=== PATIENT | male | born 1980 | race Caucasian/White ===

== ENCOUNTER 2021-02-08 11:32 | Inpatient (IN) | payer MEDICAID ==
[2021-02-08] MEDS ORDERED: Bisacodyl 10 MG Supp RECTAL ONE (12:02)
--- NOTE | 2021-02-08 12:08 | EDM.PDOC ---
ED HPI GENERAL MEDICAL PROBLEM - General Chief Complaint: Abdominal Pain Stated Complaint: UPSET STOMACH Time Seen by Provider: 02/08/21 11:50 Source of Information: Reports: Patient, RN. Denies: Old Records History Limitations: Reports: Other (no old records) - History of Present Illness INITIAL COMMENTS - FREE TEXT/NARRATIVE: 40 yo male presents for intermittent abdominal pain for the past approx 5 days. He has had occasional nausea and vomiting. No fever. No hx of any abdominal surgeries. His last BM was 2 d ago and was small and hard. Pain is diffuse when he gets it. Denies current pain or nausea. Onset: Gradual Onset Date: 02/03/21 Duration: Intermittent Location: Reports: Abdomen Quality: Reports: Pressure Severity: Moderate Improves with: Reports: Other (sitting up?) Worsens with: Reports: Other (lying flat?). Denies: Eating Context: Reports: Other (See HPI) Associated Symptoms: Reports: Nausea/Vomiting. Denies: Fever/Chills Treatments [employer]: Reports: Other (see below) (none) Abdominal Pain Score (Numeric/FACES): 6 - Related Data Allergies Allergy/AdvReac Type Severity Reaction Status Date / Time Penicillins Allergy Rash Verified 02/08/21 11:46 Home Meds: Home Meds NK [No Known Home Meds] 02/08/21 [History] Past Medical History HEENT History: Reports: None Cardiovascular History: Reports: None Respiratory History: Reports: None Gastrointestinal History: Reports: None Genitourinary History: Reports: None Musculoskeletal History: Reports: Other (See Below) Other Musculoskeletal History: right shoulder pain states it was dislocated 2 years ago Neurological History: Reports: None Psychiatric History: Reports: None Endocrine/Metabolic History: Reports: None Hematologic History: Reports: None Immunologic History: Reports: None Oncologic (Cancer) History: Reports: None Dermatologic History: Reports: None - Infectious Disease History Infectious Disease History: Reports: Chicken Pox - Past Surgical History Cardiovascular Surgical History: Reports: None Social & Family History - Tobacco Use Tobacco Use Status *Q: Current Every Day Tobacco User Years of Tobacco use: 25 Packs/Tins Daily: 1 - Caffeine Use Caffeine Use: Reports: Soda - Recreational Drug Use Recreational Drug Use: No ED ROS GENERAL - Review of Systems Review Of Systems: See Below Constitutional: Reports: No Symptoms HEENT: Reports: No Symptoms Respiratory: Reports: No Symptoms Cardiovascular: Reports: No Symptoms GI/Abdominal: Reports: Abdominal Pain, Constipation, Hematemesis (possibly a small amt), Nausea, Vomiting. Denies: Black Stool, Bloody Stool, Diarrhea, Hematochezia : Reports: No Symptoms Musculoskeletal: Reports: No Symptoms Skin: Reports: No Symptoms ED EXAM, GI/ABD - Physical Exam Exam: See Below Exam Limited By: No Limitations General Appearance: Alert, WD/WN, No Apparent Distress Eyes: Bilateral: Normal Appearance Ears: Normal External Exam, Normal Canal, Hearing Grossly Normal. No: Hearing Loss Nose: Normal Inspection, No Blood Throat/Mouth: Normal Inspection, Normal Lips, Normal Oropharynx, Normal Voice, No Airway Compromise Head: Atraumatic, Normocephalic Neck: Normal Inspection Respiratory/Chest: No Respiratory Distress, Lungs Clear, Normal Breath Sounds, No Accessory Muscle Use Cardiovascular: Regular Rate, Rhythm, No Edema GI/Abdominal Exam: Soft, Non-Tender, Abnormal Bowel Sounds (decreased), Other (some distention likely due to obesity.). No: Guarding, Rigid, Rebound, Tender Back Exam: Normal Inspection. No: CVA Tenderness (R), CVA Tenderness (L) Extremities: Normal Inspection, Normal Range of Motion, Non-Tender, No Pedal Edema Neurological: Alert, Oriented, CN II-XII Intact, Normal Cognition, No Motor/Sensory Deficits Psychiatric: Normal Affect, Normal Mood Skin Exam: Warm, Dry, Intact, Normal Color, No Rash Course - Vital Signs Text/Narrative:: Dr. Reilly Rodriguez called @ 1530h Dr. Mayo called @ 1532h Last Recorded V/S: Last Vital Signs Temp 35.6 C L 02/08/21 11:58 Pulse 105 H 02/08/21 14:16 Resp 22 H 02/08/21 14:16 BP 149/90 H 02/08/21 14:16 Pulse Ox 97 02/08/21 14:16 - Orders/Labs/Meds Orders: Active Orders 24 hr Category Date Time Status Enema [RC] ASDIRECTED Care 02/08/21 13:08 Active UA W/MICROSCOPIC [URIN] Stat Lab 02/08/21 14:15 Ordered Labs: Laboratory Tests 02/08/21 02/08/21 02/08/21 Range/Units 14:27 15:05 15:05 WBC 23.7 H (4.5-11.0) K/uL RBC 6.09 H (4.30-5.90) M/uL Hgb 17.6 H (12.0-15.0) g/dL Hct 52.4 (40.0-54.0) % MCV 86 (80-98) fL MCH 29 (27-31) pg MCHC 34 (32-36) % Plt Count 264 (150-400) K/uL Sodium 136 L (140-148) mmol/L Potassium 4.0 (3.6-5.2) mmol/L Chloride 99 L (100-108) mmol/L Carbon Dioxide 24 (21-32) mmol/L Anion Gap 17.0 H (5.0-14.0) mmol/L BUN 14 (7-18) mg/dL Creatinine 1.1 (0.8-1.3) mg/dL Est Cr Clr Drug Dosing 100.88 mL/min Estimated GFR (MDRD) > 60 (>60) Glucose 163 H (74-106) mg/dL Calcium 9.5 (8.5-10.1) mg/dL Total Bilirubin 0.8 (0.2-1.0) mg/dL AST 18 (15-37) U/L ALT 31 (12-78) U/L Alkaline Phosphatase 106 (46-116) U/L C-Reactive Protein 15.79 H (0.0-0.3) mg/dL Total Protein 8.5 H (6.4-8.2) g/dL Albumin 3.8 (3.4-5.0) g/dL Globulin 4.7 H (2.3-3.5) g/dL Albumin/Globulin Ratio 0.8 L (1.2-2.2) Meds: Medications Discontinued Medications Generic Name Dose Route Start Last Admin Trade Name Freq PRN Reason Stop Dose Admin Bisacodyl 10 mg 02/08/21 12:02 02/08/21 12:06 Bisacodyl 10 Mg Supp RECTAL 02/08/21 12:03 10 mg ONETIME ONE Administration Hydromorphone HCl 1 mg 02/08/21 14:14 02/08/21 14:20 Hydromorphone 1 Mg/Ml Syringe IM 02/08/21 14:15 1 mg ONETIME ONE Administration Lisinopril 10 mg 02/08/21 14:56 Lisinopril 10 Mg Tab PO 02/08/21 14:57 ONETIME ONE Simethicone 160 mg 02/08/21 14:48 02/08/21 14:53 Simethicone 80 Mg Tab.Chew PO 02/08/21 14:49 160 mg ONETIME ONE Administration - Radiology Interpretation Free Text/Narrative:: GB ultrasound-acute cholecystitis - Re-Assessments/Exams Free Text/Narrative Re-Assessment/Exam: 02/08/21 13:08 No results with Dulcolax, will try an enema. Free Text/Narrative Re-Assessment/Exam: 02/08/21 14:17 Pain came back after over an hour in the ER, describes now as RUQ. Does have tenderness on exam now. No results with enema. Departure - Departure Time of Disposition: 15:40 Disposition: Admitted As Inpatient 66 Condition: Fair Clinical Impression: Acute cholecystitis, Elevated blood sugar - Discharge Information Referrals: PCP,None [Primary Care Provider] - Forms: ED Department Discharge Sepsis Event Note (ED) - Focused Exam Vital Signs: Vital Signs Temp Pulse Resp BP Pulse Ox 02/08/21 14:16 105 H 22 H 149/90 H 97 02/08/21 11:58 35.6 C L 83 16 148/93 H 96 - My Orders Last 24 Hours: My Active Orders 02/08/21 13:08 Enema [RC] ASDIRECTED 02/08/21 14:15 UA W/MICROSCOPIC [URIN] Stat - Assessment/Plan Last 24 Hours: My Active Orders 02/08/21 13:08 Enema [RC] ASDIRECTED 02/08/21 14:15 UA W/MICROSCOPIC [URIN] Stat
[2021-02-08] MEDS ORDERED: HYDROmorphone 1 MG/ML Syringe IM ONE (14:14)
[2021-02-08] MEDS ORDERED: Simethicone 80 MG Tab.Chew PO ONE (14:48)
[2021-02-08] MEDS ORDERED: Lisinopril 10 MG Tab PO ONE (14:56)
--- NOTE | 2021-02-08 15:15 | US ---
Abdomen Ltd CLINICAL HISTORY: Right upper quadrant pain COMPARISON: None. TECHNIQUE: Real-time images were obtained through the right upper quadrant. FINDINGS: The liver is free of mass or biliary dilatation. There is increased hepatic echogenicity suggesting fatty infiltration. The gallbladder is sludge-filled. Gallbladder wall measures 4 mm. There is some minimal pericholecystic fluid. There are scattered stones.. The common bile duct measures 5 mm. The pancreas is obscured. The right kidney has a normal appearance. The IVC is normal. IMPRESSION: Sludge-filled gallbladder with scattered small gallstones Gallbladder wall thickening with pericholecystic fluid consistent with acute cholecystitis
[2021-02-08] MEDS ORDERED: Lactated Ringers 1,000 ML IV SCH (15:30)
--- NOTE | 2021-02-08 16:22 | PCM.HP.2 ---
H&P History of Present Illness - General Date of Service: 02/08/21 Admit Problem/Dx: Admission Diagnosis/Problem Admission Diagnosis/Problem Acute cholecystitis Source of Information: Patient, Family, Provider History Limitations: Reports: No Limitations - History of Present Illness Initial Comments - Free Text/Narative: CC: I don't want this thing to blow up inside me HPI: Samir presents to the emergency room today with several days of progressive right upper quadrant abdominal pain as well as nausea and intermittent vomiting. He thinks that symptoms started on Saturday, about 5 days ago after he ate a pastry. After that time he had initially mild but then moderate and eventually moderately severe pain. Pain is mostly in the right upper quadrant and does not radiate. It seems to come and go in waves without any obvious trigger. He did try Pepto-Bismol as well as ibuprofen with minimal if any improvement. The pain has steadily been getting worse to the point that he is not able to sleep. Intake has been poor and he has not had any appetite. Food does not taste good to him but he has not lost his taste or smell. He has had subjective fevers and chills. He did has not noticed a change in bowel or bladder habits. He has had what he calls shortness of breath because it is hard to take a deep breath when his pain is intense. He does report similar episodes in the past dating back as many as 20 years though none have ever been this intense. His most recent episode was about 3 months ago. He has no history of surgery. There is no family history of difficulty with anesthesia. He has a good functional status and can walk without limitation. Work-up in the emergency room revealed leukocytosis and an elevated CRP. Right upper quadrant ultrasound suggested acute cholecystitis with a thick gallbladder wall, sludge and gallstones. Common bile duct was normal. He will be admitted to initiate IV antibiotics and the plan is for surgical intervention tomorrow. Abdominal Pain Score (Numeric/FACES): 8 - Related Data Allergies/Adverse Reactions: Allergies Allergy/AdvReac Type Severity Reaction Status Date / Time Penicillins Allergy Rash Verified 02/08/21 11:46 Home Medications: Home Meds NK [No Known Home Meds] 02/08/21 [History] Past Medical History HEENT History: Reports: None Cardiovascular History: Reports: None Respiratory History: Reports: None Gastrointestinal History: Reports: None Genitourinary History: Reports: None Musculoskeletal History: Reports: Other (See Below) Other Musculoskeletal History: right shoulder pain states it was dislocated 2 years ago Neurological History: Reports: None Psychiatric History: Reports: None Endocrine/Metabolic History: Reports: None Hematologic History: Reports: None Immunologic History: Reports: None Oncologic (Cancer) History: Reports: None Dermatologic History: Reports: None - Infectious Disease History Infectious Disease History: Reports: Chicken Pox - Past Surgical History Cardiovascular Surgical History: Reports: None Social & Family History - Family History GI: Reports: Other (See Below) (mom and dad both had cholecystitis) - Tobacco Use Tobacco Use Status *Q: Current Every Day Tobacco User Years of Tobacco use: 25 Packs/Tins Daily: 1 - Caffeine Use Caffeine Use: Reports: Soda - Alcohol Use Alcohol Use History: No - Recreational Drug Use Recreational Drug Use: No H&P Review of Systems - Review of Systems: Review Of Systems: See Below Free Text/Narrative: A complete 12 point review of systems was obtained. Pertinent positives and negatives are noted in the history of present illness. All other systems were reviewed and were negative except as noted. Exam - Exam Exam: See Below - Vital Signs Vital Signs: Last Vital Signs Temp 35.6 C L 02/08/21 11:58 Pulse 105 H 02/08/21 14:16 Resp 22 H 02/08/21 14:16 BP 149/90 H 02/08/21 14:16 Pulse Ox 97 02/08/21 14:16 Weight: 104.326 kg - Exam Quality Assessment: No: Supplemental Oxygen General: Alert, Oriented, Cooperative. No: Mild Distress HEENT: Conjunctiva Clear, Mucosa Moist & [place]. No: Scleral Icterus Neck: Supple, Trachea Midline. No: Lymphadenopathy Lungs: Clear to Auscultation, Normal Respiratory Effort Cardiovascular: Regular Rate, Regular Rhythm. No: Systolic Murmur GI/Abdominal Exam: Normal Bowel Sounds, Soft, No Distention, Tender (moderate RUQ) Extremities: No Pedal Edema. No: Increased Warmth Peripheral Pulses: 2+: Dorsalis Pedis (L), Dorsalis Pedis (R) Skin: Warm, Dry Neuro Extensive - Mental Status: Alert, Oriented x3, Nl Response to Commands Neuro Extensive - Motor, Sensory, Reflexes: No: Dysarthria, Abnormal Motor, Tremor Psychiatric: Alert, Normal Affect - Patient Data Lab Results Last 24 hrs: Laboratory Results - last 24 hr 02/08/21 02/08/21 02/08/21 Range/Units 14:27 15:05 15:05 WBC 23.7 H (4.5-11.0) K/uL RBC 6.09 H (4.30-5.90) M/uL Hgb 17.6 H (12.0-15.0) g/dL Hct 52.4 (40.0-54.0) % MCV 86 (80-98) fL MCH 29 (27-31) pg MCHC 34 (32-36) % Plt Count 264 (150-400) K/uL Sodium 136 L (140-148) mmol/L Potassium 4.0 (3.6-5.2) mmol/L Chloride 99 L (100-108) mmol/L Carbon Dioxide 24 (21-32) mmol/L Anion Gap 17.0 H (5.0-14.0) mmol/L BUN 14 (7-18) mg/dL Creatinine 1.1 (0.8-1.3) mg/dL Est Cr Clr Drug Dosing 100.88 mL/min Estimated GFR (MDRD) > 60 (>60) Glucose 163 H (74-106) mg/dL Calcium 9.5 (8.5-10.1) mg/dL Total Bilirubin 0.8 (0.2-1.0) mg/dL AST 18 (15-37) U/L ALT 31 (12-78) U/L Alkaline Phosphatase 106 (46-116) U/L C-Reactive Protein 15.79 H (0.0-0.3) mg/dL Total Protein 8.5 H (6.4-8.2) g/dL Albumin 3.8 (3.4-5.0) g/dL Globulin 4.7 H (2.3-3.5) g/dL Albumin/Globulin Ratio 0.8 L (1.2-2.2) Result Diagrams: 02/08/21 15:05 02/08/21 14:27 Imaging Impressions Last 24 hrs: RUQ US-images personally reviewed-there is diffuse GB wall thickening at 4 mm. There is sludge in the GB and some stones. There is pericholecystic fluid present. Sepsis Event Note - Focused Exam Vital Signs: Vital Signs Temp Pulse Resp BP Pulse Ox 02/08/21 14:16 105 H 22 H 149/90 H 97 02/08/21 11:58 35.6 C L 83 16 148/93 H 96 *Q Meaningful Use (ADM) - VTE *Q VTE Pharmacological Contraindications *Q: Patient Scheduled Surgery - VTE Risk Assess *Q Each Risk Factor Represents 1 Point: Obesity ( BMI > 25 kg/m2) Total Score 1 Point Risk Factors: 1 Each Risk Factor Represents 2 Points: None Total Score 2 Point Risk Factors: 0 Each Risk Factor Represents 3 Points: None Total Score 3 Point Risk Factors: 0 Each Risk Factor Represents 5 Points: None Total Score 5 Point Risk Factors: 0 Venous Thromboembolism Risk Factor Score *Q: 1 - Problem List (1) Acute cholecystitis SNOMED Code(s): 92822171 ICD Code: K81.0 - ACUTE CHOLECYSTITIS Status: Acute Current Visit: Yes (2) Elevated blood sugar SNOMED Code(s): 69040708 ICD Code: R73.9 - HYPERGLYCEMIA, UNSPECIFIED Status: Acute Current Visit: Yes (3) Tobacco dependence SNOMED Code(s): 84904349 ICD Code: F17.200 - NICOTINE DEPENDENCE, UNSPECIFIED, UNCOMPLICATED Status: Chronic Current Visit: Yes Problem List Initiated/Reviewed/Updated: Yes Orders Last 24hrs: Active Orders 24 hr Category Date Time Status Patient Status Manage Transfer [TRANSFER] Routine ADT 02/08/21 16:13 Ordered Enema [RC] ASDIRECTED Care 02/08/21 13:08 Active UA W/MICROSCOPIC [URIN] Stat Lab 02/08/21 14:15 Ordered Lactated Ringers [Ringers, Lactated] 1,000 ml Med 02/08/21 15:30 Active IV ASDIRECTED Sodium Chloride 0.9% [Normal Saline] 1,000 ml Med 02/08/21 16:15 Active IV ASDIRECTED cefTAZidime Pentahydrate [Fortaz] 1 gm Med 02/08/21 16:30 Active Sodium Chloride 0.9% [Normal Saline] 50 ml IV Q8HR Resuscitation Status Routine Resus Stat 02/08/21 16:14 Ordered Medication Orders Lactated Ringer's (Ringers, Lactated) 1,000 mls @ 150 mls/hr IV ASDIRECTED EDGAR Ceftazidime 1 gm/ Sodium (Chloride) 50 mls @ 100 mls/hr IV Q8HR [facility] Sodium Chloride (Normal Saline) 1,000 mls @ 75 mls/hr IV ASDIRECTED [facility] Assessment/Plan Comment:: ASSESSMENT AND PLAN - Acute cholecystitis-ultrasound strongly suggestive of acute cholecystitis. He has leukocytosis and a clinical picture that fits well. Planning to initiate IV fluids and antibiotics. He is an appropriate surgical candidate and is probably in optimal achievable medical condition. He has no history of surgery. -Antibiotic coverage with ceftazidime -IV fluids -Symptomatic management of pain and nausea -Nothing by mouth after midnight -Surgical intervention for cholecystectomy tomorrow Hyperglycemia-patient reports he did drink Gatorade prior to coming to the hosp [facility]. No history of diabetes. -A1c in the morning Hypertension-blood pressure moderately elevated. No recent clinic visits. This could be related to pain/acute illness. -Monitor blood pressure at this time Tobacco dependence-encourage cessation. Maintenance issues - -DVT prophylaxis-mechanical -GI prophylaxis-not indicated -Nutrition-clear liquids today, nothing by mouth after midnight -James catheter-not indicated CODE STATUS -full code Admission justification -this patient will be admitted to observation status to initiate fluids and antibiotics with the plan for cholecystectomy tomorrow Disposition -I anticipate discharge home after the hospital stay Primary care physician -none Jung Mayo M.D. - Mortality Measure Prognosis:: Good
[2021-02-08] MEDS ORDERED: LORazepam 2 MG/ML SDV IVPUSH PRN (16:49)
[2021-02-08] MEDS ORDERED: Ondansetron 4 MG/2 ML SDV IV PRN (16:49)
[2021-02-08] MEDS ORDERED: Magnesium Hydroxide 400 MG/5 ML Susp 30 ML Cup PO PRN (16:49)
[2021-02-08] MEDS ORDERED: Ondansetron 4 MG Tab.DIS PO PRN (16:49)
[2021-02-08] MEDS ORDERED: oxyCODONE 5 MG Tab PO PRN (16:49)
[2021-02-08] MEDS ORDERED: HYDROmorphone 1 MG/ML Syringe IVPUSH PRN (16:49)
[2021-02-08] MEDS: Sodium Chloride 0.9% 1,000 ML IV SCH (17:40)
[2021-02-08] MEDS: Acetaminophen 325 MG Tab PO PRN (19:23)
[2021-02-08] MEDS: Lactobacillus Rhamnosus GG (Probiotic) Cap PO SCH (22:06)
[2021-02-09] MEDS: Acetaminophen 325 MG Tab PO PRN (02:29)
[2021-02-09 05:14] LABS: HEMOGLOBIN A1C 5.6 % (4.5-6.2)
[2021-02-09] MEDS ORDERED: Ketamine 500 MG/5 ML MDV IV SCH ×3 (07:15→11:30)
--- NOTE | 2021-02-09 07:16 | PCM.CONS ---
H&P History of Present Illness - General Date of Service: 02/09/21 Admit Problem/Dx: Admission Diagnosis/Problem Admission Diagnosis/Problem Acute cholecystitis Source of Information: Patient History Limitations: Reports: No Limitations - History of Present Illness Initial Comments - Free Text/Narative: Samir states he has had a 5 day history of RUQ Abdominal pain. Diagnosed with cholecystitis in the ED. Location: Reports: Abdomen (right upper quadrant and radiated a little to his right upper back. ) Quality: Reports: Pressure, Stabbing, Throbbing Severity: Mild (right now controlled with Oxycodone and Tylenol) Improves with: Reports: Medication Worsens with: Reports: Eating Associated Symptoms: Reports: No Other Symptoms Abdominal Pain Score (Numeric/FACES): 2 (after pain medication ) - Related Data Allergies/Adverse Reactions: Allergies Allergy/AdvReac Type Severity Reaction Status Date / Time Penicillins Allergy Rash Verified 02/08/21 11:46 Home Medications: Home Meds NK [No Known Home Meds] 02/08/21 [History] Past Medical History HEENT History: Reports: None Cardiovascular History: Reports: None Respiratory History: Reports: None Gastrointestinal History: Reports: Cholelithiasis Genitourinary History: Reports: None Musculoskeletal History: Reports: Other (See Below) Other Musculoskeletal History: right shoulder pain states it was dislocated 2 years ago Neurological History: Reports: None Psychiatric History: Reports: ADHD Endocrine/Metabolic History: Reports: None Hematologic History: Reports: None Immunologic History: Reports: None Oncologic (Cancer) History: Reports: None Dermatologic History: Reports: None - Infectious Disease History Infectious Disease History: Reports: Chicken Pox - Past Surgical History HEENT Surgical History: Reports: Other (See Below) Other HEENT Surgeries/Procedures: teeth removal. Cardiovascular Surgical History: Reports: None Respiratory Surgical History: Reports: None GI Surgical History: Reports: None Male Surgical History: Reports: None Musculoskeletal Surgical History: Reports: None Social & Family History - Family History GI: Reports: Other (See Below) - Tobacco Use Tobacco Use Status *Q: Current Every Day Tobacco User Years of Tobacco use: 30 Packs/Tins Daily: 1 - Caffeine Use Caffeine Use: Reports: Coffee - Recreational Drug Use Recreational Drug Use: No H&P Review of Systems - Review of Systems: Review Of Systems: See Below General: Reports: No Symptoms HEENT: Reports: No Symptoms Pulmonary: Reports: No Symptoms Cardiovascular: Reports: No Symptoms Gastrointestinal: Reports: Abdominal Pain, Decreased Appetite Genitourinary: Reports: No Symptoms Musculoskeletal: Reports: No Symptoms Skin: Reports: No Symptoms Psychiatric: Reports: No Symptoms Neurological: Reports: No Symptoms Hematologic/Lymphatic: Reports: No Symptoms Immunologic: Reports: No Symptoms Exam - Exam Exam: See Below - Vital Signs Vital Signs: Last Vital Signs Temp 99.9 F 02/09/21 02:29 Pulse 96 02/09/21 02:23 Resp 18 02/09/21 02:23 BP 143/83 H 02/09/21 02:23 Pulse Ox 96 02/09/21 02:23 Weight: 219 lb 2.232 oz - Exam Quality Assessment: DVT Prophylaxis General: Alert, Oriented, Cooperative, Mild Distress HEENT: PERRLA Neck: Supple, Trachea Midline Lungs: Rhonchi (with coughing ), Wheezing (bilateral upper lobes. Rhonchi with coughing. History of smoking ) GI/Abdominal Exam: Guarding, Tender (RUQ) (Male) Exam: Deferred Rectal (Males) Exam: Deferred Back Exam: Normal Inspection, Full Range of Motion Extremities: Normal Inspection, Normal Range of Motion, No Pedal Edema Skin: Warm, Dry, Intact Neurological: Cranial Nerves Intact Neuro Extensive - Mental Status: Alert, Oriented x3, Normal Mood/Affect, Normal Cognition, Memory Intact Neuro Extensive - Motor, Sensory, Reflexes: Normal Gait Psychiatric: Alert, Normal Affect, Normal Mood - Patient Data Lab Results Last 24 hrs: Laboratory Results - last 24 hr 02/08/21 02/08/21 02/08/21 Range/Units 14:27 15:05 15:05 WBC 23.7 H (4.5-11.0) K/uL RBC 6.09 H (4.30-5.90) M/uL Hgb 17.6 H (12.0-15.0) g/dL Hct 52.4 (40.0-54.0) % MCV 86 (80-98) fL MCH 29 (27-31) pg MCHC 34 (32-36) % Plt Count 264 (150-400) K/uL Sodium 136 L (140-148) mmol/L Potassium 4.0 (3.6-5.2) mmol/L Chloride 99 L (100-108) mmol/L Carbon Dioxide 24 (21-32) mmol/L Anion Gap 17.0 H (5.0-14.0) mmol/L BUN 14 (7-18) mg/dL Creatinine 1.1 (0.8-1.3) mg/dL Est Cr Clr Drug Dosing 100.88 mL/min Estimated GFR (MDRD) > 60 (>60) Glucose 163 H (74-106) mg/dL Hemoglobin A1c (4.5-6.2) % Calcium 9.5 (8.5-10.1) mg/dL Total Bilirubin 0.8 (0.2-1.0) mg/dL AST 18 (15-37) U/L ALT 31 (12-78) U/L Alkaline Phosphatase 106 (46-116) U/L C-Reactive Protein 15.79 H (0.0-0.3) mg/dL Total Protein 8.5 H (6.4-8.2) g/dL Albumin 3.8 (3.4-5.0) g/dL Globulin 4.7 H (2.3-3.5) g/dL Albumin/Globulin Ratio 0.8 L (1.2-2.2) Urine Color (YELLOW) Urine Appearance (CLEAR) Urine pH (5.0-8.0) Ur Specific [place] (1.008-1.030) Urine Protein (NEGATIVE) mg/dL Urine Glucose (UA) (NEGATIVE) mg/dL Urine Ketones (NEGATIVE) mg/dL Urine Occult Blood (NEGATIVE) Urine Nitrite (NEGATIVE) Urine Bilirubin (NEGATIVE) Urine Urobilinogen (0.2-1.0) EU/dL Ur Leukocyte Esterase (NEGATIVE) Urine RBC (0-5) Urine WBC (0-5) Ur Epithelial Cells Amorphous Sediment Urine Bacteria Urine Mucus Urine Other SARS-CoV-2 RNA (DIONY) (NEGATIVE) 02/08/21 02/08/21 02/09/21 Range/Units 17:22 20:51 04:25 WBC 23.0 H (4.5-11.0) K/uL RBC 5.71 (4.30-5.90) M/uL Hgb 16.9 H (12.0-15.0) g/dL Hct 49.3 (40.0-54.0) % MCV 86 (80-98) fL MCH 30 (27-31) pg MCHC 34 (32-36) % Plt Count 235 (150-400) K/uL Sodium (140-148) mmol/L Potassium (3.6-5.2) mmol/L Chloride (100-108) mmol/L Carbon Dioxide (21-32) mmol/L Anion Gap (5.0-14.0) mmol/L BUN (7-18) mg/dL Creatinine (0.8-1.3) mg/dL Est Cr Clr Drug Dosing mL/min Estimated GFR (MDRD) (>60) Glucose (74-106) mg/dL Hemoglobin A1c (4.5-6.2) % Calcium (8.5-10.1) mg/dL Total Bilirubin (0.2-1.0) mg/dL AST (15-37) U/L ALT (12-78) U/L Alkaline Phosphatase (46-116) U/L C-Reactive Protein (0.0-0.3) mg/dL Total Protein (6.4-8.2) g/dL Albumin (3.4-5.0) g/dL Globulin (2.3-3.5) g/dL Albumin/Globulin Ratio (1.2-2.2) Urine Color Brown A (YELLOW) Urine Appearance Cloudy A (CLEAR) Urine pH 5.5 (5.0-8.0) Ur Specific [place] >= 1.030 (1.008-1.030) Urine Protein >=300 H (NEGATIVE) mg/dL Urine Glucose (UA) Negative (NEGATIVE) mg/dL Urine Ketones Negative (NEGATIVE) mg/dL Urine Occult Blood Large H (NEGATIVE) Urine Nitrite Negative (NEGATIVE) Urine Bilirubin Small H (NEGATIVE) Urine Urobilinogen 1.0 (0.2-1.0) EU/dL Ur Leukocyte Esterase Negative (NEGATIVE) Urine RBC Semi-packed H (0-5) Urine WBC 0-5 (0-5) Ur Epithelial Cells Rare Amorphous Sediment Few Urine Bacteria Occasional Urine Mucus Numerous Urine Other See note SARS-CoV-2 RNA (DIONY) Negative (NEGATIVE) 02/09/21 02/09/21 Range/Units 04:25 04:25 WBC (4.5-11.0) K/uL RBC (4.30-5.90) M/uL Hgb (12.0-15.0) g/dL Hct (40.0-54.0) % MCV (80-98) fL MCH (27-31) pg MCHC (32-36) % Plt Count (150-400) K/uL Sodium 138 L (140-148) mmol/L Potassium 4.3 (3.6-5.2) mmol/L Chloride 101 (100-108) mmol/L Carbon Dioxide 27 (21-32) mmol/L Anion Gap 14.3 H (5.0-14.0) mmol/L BUN 12 (7-18) mg/dL Creatinine 1.0 (0.8-1.3) mg/dL Est Cr Clr Drug Dosing 110.97 mL/min Estimated GFR (MDRD) > 60 (>60) Glucose 118 H (74-106) mg/dL Hemoglobin A1c 5.6 (4.5-6.2) % Calcium 9.0 (8.5-10.1) mg/dL Total Bilirubin 1.5 H D (0.2-1.0) mg/dL AST 33 D (15-37) U/L ALT 44 (12-78) U/L Alkaline Phosphatase 105 (46-116) U/L C-Reactive Protein (0.0-0.3) mg/dL Total Protein 6.6 (6.4-8.2) g/dL Albumin 3.1 L (3.4-5.0) g/dL Globulin 3.5 (2.3-3.5) g/dL Albumin/Globulin Ratio 0.9 L (1.2-2.2) Urine Color (YELLOW) Urine Appearance (CLEAR) Urine pH (5.0-8.0) Ur Specific [place] (1.008-1.030) Urine Protein (NEGATIVE) mg/dL Urine Glucose (UA) (NEGATIVE) mg/dL Urine Ketones (NEGATIVE) mg/dL Urine Occult Blood (NEGATIVE) Urine Nitrite (NEGATIVE) Urine Bilirubin (NEGATIVE) Urine Urobilinogen (0.2-1.0) EU/dL Ur Leukocyte Esterase (NEGATIVE) Urine RBC (0-5) Urine WBC (0-5) Ur Epithelial Cells Amorphous Sediment Urine Bacteria Urine Mucus Urine Other SARS-CoV-2 RNA (DIONY) (NEGATIVE) Result Diagrams: 02/09/21 04:25 02/09/21 04:25 Sepsis Event Note - Evaluation Sepsis Screening Result: No Definite Risk - Focused Exam Vital Signs: Vital Signs Temp Temp Pulse Resp BP BP Pulse Ox 02/09/21 02:29 99.9 F 02/09/21 02:23 99.9 F 96 18 143/83 H 96 02/08/21 23:00 100.0 F 94 18 133/87 93 L 02/08/21 19:53 99.8 F 02/08/21 19:23 102.4 F H 02/08/21 19:22 102.4 F H 99 18 146/75 H 91 L *Q Meaningful Use (ADM) - VTE *Q VTE Pharmacological Contraindications *Q: Patient Scheduled Surgery Consult PN Assessment/Plan POD#: 0 (1) Acute cholecystitis SNOMED Code(s): 79272500 Code(s): K81.0 - ACUTE CHOLECYSTITIS Current Visit: Yes (2) Elevated blood sugar SNOMED Code(s): 95332112 Code(s): R73.9 - HYPERGLYCEMIA, UNSPECIFIED Current Visit: Yes (3) Tobacco dependence SNOMED Code(s): 96077853 Code(s): F17.200 - NICOTINE DEPENDENCE, UNSPECIFIED, UNCOMPLICATED Current Visit: Yes Problem List Initiated/Reviewed/Updated: Yes My Orders Last 24 Hours: My Active Orders 02/09/21 11:30 Verify Patient Consent Obtain [RC] ASDIRECTED Albuterol/Ipratropium [DuoNeb 3.0-0.5 MG/3 ML] 3 ml NEB ONETIME ONE Meropenem [Merrem] 500 mg Sodium Chloride 0.9% [Normal Saline] 50 ml IV ONCALL After preoperative evaluation and discussion of possible risks and complications patient wishes to proceed with surgical procedure. Plan to be discharged on post op day one. Kristen Browne 02/09/2021
[2021-02-09] MEDS: Sodium Chloride 0.9% 1,000 ML IV SCH (07:31)
[2021-02-09] MEDS ORDERED: fentaNYL 250 MCG/5 ML SDV ONE ×2 (09:07→13:29)
[2021-02-09] MEDS ORDERED: Succinylcholine 200 MG/10 ML MDV ONE (09:08)
[2021-02-09] MEDS ORDERED: Glycopyrrolate 0.2 MG/ML 5 ML MDV ONE (09:08)
[2021-02-09] MEDS ORDERED: Rocuronium 50 MG/5 ML Vial ONE ×2 (09:08→13:28)
[2021-02-09] MEDS ORDERED: Neostigmine Methylsulfate 1 MG/ML 5 ML Syringe ONE (09:08)
[2021-02-09] MEDS ORDERED: Dexamethasone 4 MG/ML SDV ONE (09:08)
[2021-02-09] MEDS ORDERED: Propofol 200 MG/20 ML SDV ONE (09:08)
[2021-02-09] MEDS ORDERED: Ondansetron 4 MG/2 ML SDV ONE (09:08)
[2021-02-09] MEDS: Lactobacillus Rhamnosus GG (Probiotic) Cap PO SCH (09:09)
[2021-02-09] MEDS ORDERED: Bupivacaine 0.5%/EPINEPHrine 1:200,000 50 ML MDV ONE (10:51)
[2021-02-09] MEDS ORDERED: Albuterol/Ipratropium 3.0-0.5 MG/3 ML Neb Soln NEB ONE (11:30)
[2021-02-09] MEDS ORDERED: Ropivacaine 50 ML, dexAMETHasone 8 MG, EPINEPHrine 0.4 MG, Sodium Chloride 0.9% 27.6 ML NERVRT SCH ×4 (11:30)
[2021-02-09] MEDS ORDERED: Meropenem 500 MG in Sodium Chloride 0.9% 50 ML IV ONE (11:30)
[2021-02-09] MEDS ORDERED: Ketamine 24 MG in Sodium Chloride 0.9% 19.76 ML IV SCH (11:30)
[2021-02-09] MEDS ORDERED: Meropenem 500 MG SDV ONE (14:06)
[2021-02-09] MEDS ORDERED: Meropenem 500 MG SDV IRR ONE (14:09)
[2021-02-09] MEDS ORDERED: Bupivacaine 0.5%/EPINEPHrine 1:200,000 30 ML SDV INJECT ONE (14:15)
[2021-02-09] MEDS ORDERED: Lactated Ringers 1,000 ML ONE (14:29)
[2021-02-09] MEDS ORDERED: Sodium Chloride 0.9% 10 ML ONE (14:33)
[2021-02-09] MEDS ORDERED: Sugammadex Sodium 200 MG/2 ML VIAL ONE (14:39)
[2021-02-09] MEDS ORDERED: hydrOXYzine HCL 100 MG/2 ML SDV IM PRN (15:43)
[2021-02-09] MEDS ORDERED: Cyclobenzaprine 10 MG Tab PO PRN (15:44)
[2021-02-09] MEDS ORDERED: Dextrose 5%-Lactated Ringers 1,000 ML IV SCH (15:45)
[2021-02-09] MEDS ORDERED: Ondansetron 4 MG/2 ML SDV IVPUSH PRN (16:00)
[2021-02-09] MEDS ORDERED: HYDROmorphone 1 MG/ML Syringe IV PRN (16:00)
[2021-02-09] MEDS ORDERED: HYDROmorphone 0.5 MG/0.5 ML Syringe IVPUSH PRN (16:00)
[2021-02-09] MEDS: Acetaminophen 500 MG Tab PO SCH ×2 (16:41→22:39)
[2021-02-09] MEDS: Pantoprazole 40 MG Vial IVPUSH SCH (16:41)
[2021-02-09] MEDS: Meropenem 500 MG in Sodium Chloride 0.9% 50 ML IV SCH (17:47)
[2021-02-10] MEDS: Meropenem 500 MG in Sodium Chloride 0.9% 50 ML IV SCH ×5 (00:25→23:35)
[2021-02-10] MEDS: Acetaminophen 500 MG Tab PO SCH ×4 (04:02→21:49)
[2021-02-10] MEDS: oxyCODONE 5 MG Tab PO PRN ×3 (07:52→19:48)
[2021-02-10] MEDS: Albuterol/Ipratropium 3.0-0.5 MG/3 ML Neb Soln NEB SCH ×4 (08:11→21:43)
--- NOTE | 2021-02-10 08:13 | PN ---
DATE OF SERVICE: 02/10/2021 SUBJECTIVE: Samir is postop day #1. He states his pain is controlled. Oral intake 490, output 400. JOHANNA drain 1 and 2 put out 85 and 110 of a light red drainage. Vital signs have been stable. He has been afebrile. He does report feeling chest congestion. He does not have an incentive spirometer, so has not been using it. REVIEW OF SYSTEMS: Remainder of review of systems negative for any pertinent positives and negatives. OBJECTIVE: GENERAL: Samir Higgins is a pleasant 40-year-old male. VITAL SIGNS: TPR is 97.8, 93, 18, blood pressure 143/70. HEENT: Negative. NECK: Supple. HEART: Regular rate and rhythm. LUNGS: Reveal rhonchi with coughing and he has rales and wheezing scattered in both lungs. History of 1 pack per day smoking. ABDOMEN: Dressings dry and intact. JHOANNA drains as above. Abdominal binder is on. EXTREMITIES: Without peripheral edema. ASSESSMENT: Diagnostic laparoscopy with: 1. Cholecystectomy. 2. Drainage of pericholecystic abscess. 3. Repair of incarcerated umbilical hernia. POSTOPERATIVE DIAGNOSES: 1. Acute cholecystitis. 2. Pericholecystic abscess. 3. Incarcerated umbilical hernia. Date of procedure: 02/09/2021. 4. Early bronchitis. PLAN: 1. Remove abdominal packing in upper trocar site. 2. Saline lock IV. 3. Check CBC, CMP, mag, and phos in a.m. 4. DuoNebs scheduled q.i.d. 5. To use incentive spirometer 10 times every hour while awake. Of note, the patient has not used his incentive spirometer yet. 6. Dressing off, may shower. 7. We will evaluate p.r.n. or in a.m. Kristen Wilson PA-C /[id number]
[2021-02-10] MEDS ORDERED: Albuterol/Ipratropium 3.0-0.5 MG/3 ML Neb Soln NEB SCH (11:00)
--- NOTE | 2021-02-10 13:27 | OR ---
DATE OF PROCEDURE: 02/09/2021 SURGEON: Tanner Rodriguez MD PREOPERATIVE DIAGNOSIS: Acute cholecystitis. POSTOPERATIVE DIAGNOSES: 1. Acute gangrenous cholecystitis with pericholecystic abscess. 2. Incarcerated umbilical hernia. OPERATIVE PROCEDURES: Diagnostic laparoscopy with: 1. Cholecystectomy ([id number]). 2. Drainage of pericholecystic abscess ([id number]). 3. Repair of incarcerated umbilical hernia ([id number]). ANESTHESIA: General. WARP DRAWER: Kristen Wilson PA-C INDICATIONS FOR PROCEDURE: This is a 40-year-old admitted with a picture of an acute cholecystitis. Preoperative ultrasound shows multiple small stones along with markedly thickened wall and pericholecystic fluid collection. The plan is to proceed with a laparoscopic or if necessary open cholecystectomy. Potential risks of the procedure including bleeding, infection, injury to common bile duct with migration of stones in the common bile duct requiring additional procedures for correction were all reviewed, and the patient wishes to proceed. DETAILS OF PROCEDURE: The patient was taken to the operating room and placed in a supine position. After general endotracheal anesthesia was induced, the patient was noted to have an incarcerated umbilical hernia. The abdomen was prepped and draped. Initially, the transverse infraumbilical incision was made and the hernia sac then dissected out. This then allowed entrance into the peritoneal cavity with an Optiview trocar without difficulty, and the peritoneal cavity was inflated to 15 mmHg pressure with CO2. A 12 mm epigastric trocar and 5 mm right upper quadrant trocar were then both placed. The patient was noted to have a mass effect with the omentum was densely adherent to the gallbladder. Bilateral transversus abdominis plane blocks were placed. The omentum was gallbladder with some focal necrotic areas on the surface of the gallbladder. Then, subsequently on removal of the gallbladder, the entire internal mucosal surface was noted to be necrotic. Upon elevation of the gallbladder, the purulent fluid collection posterior to the gallbladder was noted consistent with pericholecystic abscess seen on the preoperative ultrasound. Cultures of this were obtained. At this point, dissection continued around the gallbladder neck and essentially down to the gallbladder neck and cystic duct junction. Once that area was well delineated along with adjacent cystic artery, both structures were taken with FAISAL purple load. Cushing were used in this case to obtain a more secure closure and one that could remain very much flush with the gallbladder surface. After this was completed, the gallbladder dissected off the gallbladder bed using Harmonic scalpel and delivered through the epigastric trocar site. This needed to be enlarged somewhat in order to get the gallbladder out. At that point, some bleeding in front of the gallbladder bed was controlled with electrocautery and area irrigated with meropenem-containing saline solution. Two Dagoberto-Arriaza drains were then placed in the right subcostal area along the subphrenic area and one in the area of the gallbladder bed. The camera port was then brought back up to the epigastric site and the umbilical hernia repair stitches were placed. These were placed with laparoscopic suture passer under direct vision with closure of the defect with a transverse orientation. The epigastric fascia was then also closed with 0 Vicryl stitch. The latter was packed open at the skin level. The remaining area was then closed with some 4-0 Vicryl skin stitch. Dressing was applied. The patient was taken to the recovery room in satisfactory condition. Physician triage assistant, Kristen Wilson, played an essential role in assisting in this case, helping to positioning the patient, retract structures as needed, as well as suturing and cutting sutures when indicated. Her presence improved the patient's safety and decreased the operative time. Tanner Rodriguez MD /[id number]
[2021-02-10] MEDS: Pantoprazole 40 MG Vial IVPUSH SCH (15:34)
[2021-02-11] MEDS: Acetaminophen 500 MG Tab PO SCH (05:01)
[2021-02-11] MEDS: Meropenem 500 MG in Sodium Chloride 0.9% 50 ML IV SCH (05:02)
[2021-02-11] MEDS: oxyCODONE 5 MG Tab PO PRN ×2 (05:08→09:41)
[2021-02-11] MEDS: Albuterol/Ipratropium 3.0-0.5 MG/3 ML Neb Soln NEB SCH (07:04)
[2021-02-11] MEDS ORDERED: Doxycycline 100 MG Cap PO SCH (08:00)
--- NOTE | 2021-02-12 08:43 | DISCH ---
ADMISSION DIAGNOSIS: Acute cholecystitis. DISCHARGE DIAGNOSES: Diagnostic laparoscopy with: 1. Cholecystectomy. 2. Drainage of pericholecystic abscess. 3. Repair of incarcerated umbilical hernia. POSTOPERATIVE DIAGNOSES: 1. Acute cholecystitis. 2. Acute gangrenous cholecystitis with pericholecystic abscess. 3. Incarcerated umbilical hernia. Date of procedure: 02/09/2021. Surgeon: Tanner Rodriguez MD HISTORY: Samir is a 40-year-old male admitted with acute cholecystitis. Preoperative ultrasound showed multiple small stones with markedly thickened wall and pericholecystic fluid collection. After preoperative evaluation, discussion of possible risks and possible complications, he wished to proceed with surgical procedure. HOSPITAL COURSE: Samir had his surgery on 02/09/2021. He had no operative complications. On postoperative day #1, he had abdominal packing at his upper trocar site that was removed. He was started on DuoNeb and incentive spirometer. Dressings were off. He was able to shower and his diet was progressed as tolerated. Vital signs remained stable. On postoperative day 2, he was able to be discharged to home. Vital signs were stable. White count decreased from 23.4 to 16.7, hemoglobin was 14.4. Potassium was 3.4. Liver function tests were normal. Total bilirubin was 0.3, AST 63, and alkaline phosphatase was 91. Samir's pain was controlled with oxycodone. He did have a bowel movement. He will go home with one JOHANNA drain, and he was taught how to take care of that. Samir's condition was stable, and he was able to be discharged to home. PHYSICAL EXAMINATION: GENERAL: Samir Higgins is a 40-year-old male. VITAL SIGNS: Height is 6 feet 1 inch, weight is 219 pounds. BMI is 28.9. TPR 97.6, 88, 16. Blood pressure 152/84. HEENT: Negative. NECK: Supple. HEART: Regular rate and rhythm. LUNGS: Clear. ABDOMEN: Dressings dry and intact. JOHANNA drain #1 put out 60 mL over the past 24 hours, but it has a mateo red color. JOHANNA 2 is clear pink. JOHANNA drain 1 will be left in, and the patient was taught how to take care of this at home and JOHANNA drain #2 was removed. EXTREMITIES: Without peripheral edema. DISPOSITION: Discharged to home. CONDITION: Stable and improving. FOLLOWUP APPOINTMENT: With Kristen Wilson PA-C, on 02/15/2021 at 8:30 a.m. HOME MEDICATIONS: Oxycodone 5 mg q.4 hours p.r.n. pain, #12, and doxycycline 100 mg p.o. q.12 hours for 5 days, #10. DIET: Usual diet as tolerated. Drink 8 to 10 glasses of water a day. ACTIVITY: No lifting greater than 10 pounds for [address] for 1 week or within 8 hours of taking oxycodone. Shower/bathing: May shower. Keep operative site clean and dry. Wear abdominal binder for 2 weeks and as tolerated. Notify provider if any fever, increased pain, swelling, redness, drainage, nausea, vomiting. OTHER INSTRUCTIONS: Strip, empty, measure, and record JOHANNA drain 4 times a day. Bring record of JOHANNA drain to clinic and use incentive spirometer 10 times every hour while awake for 1 week. /[id number]
== END 2021-02-11 09:50 | disposition home or self-care (01) | DRG 418 ==
LOC: JP.ED 11:32 → JP.MS 16:13 → OBSVTOIN 02-09 14:50
PROVIDERS: ADMIT Internal Medicine; ATTEND Surgery
PROC: 0FT44ZZ Resection of Gallbladder, Percutaneous Endoscopic Approach (ICD-10-PCS; principal; 2021-02-09)
PROC: 0WQF4ZZ Repair Abdominal Wall, Percutaneous Endoscopic Approach (ICD-10-PCS; 2021-02-09)
PROC: 0W9G4ZZ Drainage of Peritoneal Cavity, Percutaneous Endoscopic Approach (ICD-10-PCS; 2021-02-09)
DX: K81.0 Acute cholecystitis (principal); K42.0 Umbilical hernia with obstruction, without gangrene; K82.A1 Gangrene of gallbladder in cholecystitis; Z20.822 Contact with and (suspected) exposure to COVID-19; J40 Bronchitis, not specified as acute or chronic; F90.9 Attention-deficit hyperactivity disorder, unspecified type; R73.9 Hyperglycemia, unspecified; F17.200 Nicotine dependence, unspecified, uncomplicated; Z88.0 Allergy status to penicillin
CPT/HCPCS: 36415; 76705; 76705-26; 80053; 81001; 83036; 83735; 84100; 85025; 85027; 86140; 87040; 87070; 87075; 87205; 88302; 88304; 94640; 96365; 96372; 96376; 99285-25; A9270-GY; C9113; G0378; J0171; J0330; J0713; J1100; J1170; J2185; J2405; J2704; J2710; J2795; J3010; J3490; J7030; J7120; J7121; J7620-GY; U0002